=== PATIENT | male | born 1995 ===

== ENCOUNTER 2018-09-20 03:11 | Emergency (ER) | payer SELFPAY ==
[2018-09-20 03:16] VITALS: BMI 29.2
--- NOTE | 2018-09-20 03:58 | ED PDOC ---
Arrival/HPI <Pedro Gaytan - Last Filed: 09/20/18 06:31> - General Historian: Patient - History of Present Illness Narrative History of Present Illness (Text): 09/20/18 03:55 Pt is a 19 yo male with no significant PMH who was brought in after being found intoxicated laying in the grass in [place]. Admits to alcohol ingestion. Pt denies any chest pain, SOB, nausea, vomiting, constipation, diarrhea, falling/hitting his head. Time/Duration: 4-6 hours Symptom Onset: Gradual Symptom Course: Unchanged Activities at Onset: Rest Context: Sitting <Pascual Braxtonron - Last Filed: 09/20/18 06:32> - General Chief Complaint: Alcohol Ingestion Past Medical History - Psychiatric Hx Substance Use: No (Unknown) <Pascual Braxton - Last Filed: 09/20/18 06:32> Family/Social History Family/Social History: No Known Family HX Smoking Status: Smoker Currrent Status Unknown Hx Alcohol Use: Yes (amount unknown) Frequency of alcohol use: Few days per week Hx Substance Use: No (Unknown) <Pascual Braxtonron - Last Filed: 09/20/18 06:32> Allergies/Home Meds <LukasPedro - Last Filed: 09/20/18 06:31> <Pascual Braxtonron - Last Filed: 09/20/18 06:32> Allergies/Adverse Reactions: Allergies Unobtainable Allergy (Verified 09/20/18 03:15) Home Medications: Home Meds Medication Instructions Recorded Confirmed Unobtainable 09/20/18 09/20/18 Review of Systems - Review of Systems Constitutional: Normal Eyes: Normal ENT: Normal Respiratory: Normal Cardiovascular: Normal Gastrointestinal: Normal Genitourinary Male: Normal Musculoskeletal: Normal Skin: Normal Neurological: Normal Endocrine: Normal Hemo/Lymphatic: Normal Psychiatric: Normal <Pascual Braxtonron - Last Filed: 09/20/18 06:32> Physical Exam Vital Signs Temp Pulse Resp BP Pulse Ox 09/20/18 05:44 80 15 114/72 97 09/20/18 03:24 97.5 F L 99 H 18 150/91 H 99 <Pedro Gaytan - Last Filed: 09/20/18 06:31> Vital Signs Reviewed: Yes Vital Signs Temp Pulse Resp BP Pulse Ox 05/24/19 03:24 97.5 F L 99 H 18 150/91 H 99 Temperature: Afebrile Blood Pressure: Normal Pulse: Regular Respiratory Rate: Normal Appearance: Positive for: Well-Appearing Mental Status: Positive for: Alert and Oriented X 3 Finger Stick Blood Glucose: 134 - Systems Exam Head: Present: Atraumatic, Normocephalic Pupils: Present: PERRL Extroacular Muscles: Present: EOMI Conjunctiva: Present: Normal Mouth: Present: Moist Mucous Membranes Neck: Present: Normal Range of Motion Respiratory/Chest: Present: Clear to Auscultation Cardiovascular: Present: Regular Rate and Rhythm Abdomen: No: Tenderness, Distention Upper Extremity: Present: Normal Inspection Lower Extremity: Present: Normal Inspection Neurological: Present: GCS=15, CN II-XII Intact Skin: Present: Warm, Dry, Normal Color Psychiatric: Present: Alert, Oriented x 3 <Pascual Braxton - Last Filed: 09/20/18 06:32> Medical Decision Making ED Course and Treatment: 09/20/18 07:[address] ohgan, pending sobriety and final disposition <Pedro Gaytan - Last Filed: 09/20/18 06:31> ED Course and Treatment: 09/20/18 03:59 discharge when sober Pt seen, examined, assessment and plan discussed with Dr Lukas Braxton PGY1 <Pascual Braxton - Last Filed: 09/20/18 06:32> - PA / [employer] / Resident Statement IVET has reviewed & agrees with the documentation as recorded. IVET has examined the patient and agrees with the treatment plan. <Pascual Braxton - Last Filed: 09/20/18 06:32> Disposition/Present on Arrival - Disposition Disposition Time: 07:00 <Pedro Gaytan Last Filed: 09/20/18 06:31> - Present on Arrival Any Indicators Present on Arrival: No History of DVT/PE: No History of Uncontrolled Diabetes: No Urinary Catheter: No History of Decub. Ulcer: No History Surgical Site Infection Following: None - Disposition Have Diagnosis and Disposition been Completed?: Yes Patient Plan: Discharge <Pascual Braxton - Last Filed: 09/20/18 06:32> - Disposition Diagnosis: Alcohol intoxication Disposition: HOME/ ROUTINE Condition: GOOD Discharge Instructions (ExitCare): Alcohol Abuse and Alcoholism (DC) Forms: [email or web address] (K[place]akh)
[2018-09-20 07:25] VITALS: BP 108/40; RESP 18
[2018-09-20 08:01] VITALS: PULSE 76; TEMP 98; O2SAT 99
== END 2018-09-20 08:24 | disposition home or self-care (01) ==
LOC: ED 03:11
DX: F10.129 Alcohol abuse with intoxication, unspecified (principal)